=== PATIENT | female | born 1995 | race Two or more races ===

== ENCOUNTER 2025-01-05 09:34 | Emergency (ER) | payer OTHER, SELFPAY ==
[2025-01-05 10:20] VITALS: BP 125/79; PULSE 77; RESP 18; TEMP 37.2; O2SAT 98
[2025-01-05 10:21] VITALS: BMI 34.7
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
[2025-01-05 12:17] LABS: HCG Qualitative,Urine Negative
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
== END 2025-01-05 14:31 | disposition home or self-care (01) ==
PROVIDERS: Nurse Practitioner Primary Care; Emergency Provider Emergency Medicine; PCP Internal Medicine
DX: S30.1XXA Contusion of abdominal wall, initial encounter (principal); S20.219A Contusion of unspecified front wall of thorax, initial encounter; S69.91XA Unspecified injury of right wrist, hand and finger(s), initial encounter; M54.2 Cervicalgia; V43.52XA Car driver injured in collision with other type car in traffic accident, initial encounter
CPT/HCPCS: 71250; 72040; 72050; 73130; 74176; 81025; 99284

== ENCOUNTER → 2025-02-05 | Outpatient (CLI) | payer OTHER, SELFPAY ==
--- NOTE | 2025-02-05 15:20 | XR_ITS ---
Examination: Hand, right 3 views Technique: Hand AP, oblique, lateral 3 views Date and time of exam: February 05, 2025, 1544 hours INDICATIONS: Joint pain months FINDINGS: Mild juxta-articular bone demineralization. No fracture or dislocation. No erosive or other significant arthritic change IMPRESSION: No erosive or other significant arthritic change
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
--- NOTE | 2025-02-05 15:20 | XR_ITS ---
Examination: Wrist, right 3 views Technique: Wrist AP, oblique, lateral 3 views Date and time of exam: February 05, 2025, 1540 hours INDICATIONS: Joint pain in the wrist months FINDINGS: Mild osteopenia. No fracture or dislocation. No erosive or other significant arthritic change IMPRESSION: No erosive or other significant arthritic change
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
== END | disposition home or self-care (01) ==
PROVIDERS: PCP Nurse Practitioner; Referring Provider Nurse Practitioner; Visit Provider Nurse Practitioner
DX: M25.541 Pain in joints of right hand (principal); M25.521 Pain in right elbow; M25.531 Pain in right wrist; F07.81 Postconcussional syndrome
CPT/HCPCS: 70450; 73080; 73110; 73130